=== PATIENT | female | born 1975 | race Caucasian/White ===

== ENCOUNTER → 2021-01-29 | Outpatient (CLI) | payer BC ==
[~2021-01-29] VITALS: Ht 175.3 cm; Wt 120.2 kg
== END ==
LOC: ER1 17:29
DX: U07.1 COVID-19 (principal); J45.909 Unspecified asthma, uncomplicated; Z68.39 Body mass index [BMI] 39.0-39.9, adult; Z23 Encounter for immunization
CPT/HCPCS: 96365